=== PATIENT | female | born 1980 | race Caucasian/White ===

== ENCOUNTER 2017-01-28 11:04 | Inpatient (IN) ==
--- NOTE | 2017-01-28 11:17 | Emergency Department Note ---
Disposition Clinical Impression: Pulmonary embolism Disposition: Admitted As Inpatient Condition: Good Time of Disposition: 13:12 SOB HPI - General Chief Complaint: ED Shortness of Breath/Dyspnea Stated Complaint: Chest Pain Source: patient, family Mode of arrival: ambulatory Limitations: no limitations Nursing Notes Reviewed: Yes Vital Signs Reviewed: Yes - History of Present Illness 37-year-old female presenting to the emergency department for increasing difficulty breathing and pleuritic chest pain. She states that at the end of December she was diagnosed with a right-sided PE. They believe it was due to the depo shot that she received. She is currently being anticoagulated on xarelto. Her physician requested a direct bed to the ED for a secondary work up for PE. She states she feels chest pain when breathing. It is not constant. It does not radiate anywhere. Pt Subjective Complaint: shortness of breath, pain with inspiration Severity: moderate - Related Data Home Medications Medication Instructions Recorded Confirmed Albuterol Sulfate [Ventolin Hfa] 2 puff IH Q4-6H PRN 11/04/16 11/04/16 Citalopram Hydrobromide 40 mg PO DAILY 11/04/16 11/04/16 [Citalopram HBr] Dicyclomine [Bentyl] 10 mg PO QID 11/04/16 11/04/16 Fluticasone Propionate Nasal 2 spr NS DAILY 11/04/16 11/04/16 [Flonase] Fluticasone Propionate [Flovent 2 puff IH DAILY 11/04/16 11/04/16 Hfa] Loratadine [Claritin] 10 mg PO DAILY 11/04/16 11/04/16 Medroxyprogesterone Acetate 150 mg IM Q3M 11/04/16 11/04/16 [DEPO-Provera] Montelukast [Singulair] 10 mg PO HS 11/04/16 11/04/16 Pantoprazole Sodium 20 mg PO DAILY 11/04/16 11/04/16 Allergies Allergy/AdvReac Type Severity Reaction Status Date / Time Sulfa (Sulfonamide Allergy Rash Verified 11/04/16 11:08 Antibiotics) fexofenadine [From Tanya-D] AdvReac See Verified 11/04/16 11:08 Comments pseudoephedrine AdvReac See Verified 11/04/16 11:08 [From Tanya-D] Comments Constitutional: Denies: fever, chills, weakness Eyes: Reports: as per HPI ENT ED: Reports: as per HPI Cardiovascular: Reports: chest pain, dyspnea on exertion. Denies: palpitations Respiratory: Reports: dyspnea. Denies: cough, wheezes, hemoptysis Gastrointestinal: Reports: nausea. Denies: abdominal pain, vomiting Genitourinary: Reports: as per HPI Neurological: Denies: headache, weakness, numbness, paresthesias Endocrine: Reports: as per HPI Hematological/Lymphatic: Reports: as per HPI Past Medical History - Past Medical History Medical history: Reports: GERD, pulmonary embolus, other Surgical history: Reports: appendectomy, Psychiatric history: Reports: no psych history - Social History Smoking Status: Never smoker Smokeless Tobacco Status: No Alcohol use: Reports: none Drug use: Reports: none Physical Exam - General Limitations: no limitations General appearance: alert, anxious, obese - Head Head exam: atraumatic, normocephalic - Eye Eye exam: Present: normal appearance - Neck Neck exam: Present: normal inspection - Chest Chest inspection: Present: normal inspection, symmetric chest wall rise. Absent : tenderness - Respiratory Respiratory exam: Present: normal lung sounds bilaterally. Absent: respiratory distress, wheezes - Cardiovascular Cardiovascular exam: Present: regular rate, normal rhythm - Abdominal Exam Abdominal exam: Present: soft, Non-Tender. Absent: distention, guarding, rebound - Extremities Exam Extremities exam: Present: normal inspection, full ROM - Neurological Exam Neurological exam: Present: alert, oriented X3 - Psychiatric Psychiatric exam: Present: normal affect - Skin Skin exam: Present: warm, dry Course Course Narrative: 37-year-old female presented to the emergency department for workup of a blood clot from her physician. Due to strong history of blood clot in the past and possible family history factors of factor V Leiden we will obtain basic blood work. As long as the kidney function is within normal limits a CT of the chest be ordered. - Reevaluation(s) Reevaluation #1: Patient states he has returned. I spoke with the radiologist on the phone who stated that he has multiple small clot burden throughout the right lung. The radiologist is unable to compare to the previous study. Due to failure of outpatient treatment and increase in symptoms we will contact the hospitalist Dr. Singh . She quickly responded and agreed to accept the patient. In the emergency department we have completed PT-INR will start a heparin drip once the results of the blood work comes back Vital Signs Temperature 98.1 F 01/28/17 11:18 Pulse Rate 79 01/28/17 11:18 Respiratory Rate 24 01/28/17 11:18 Blood Pressure 132/91 01/28/17 11:18 O2 Sat by Pulse Oximetry 100 01/28/17 11:18 Temperature 98.1 F 01/28/17 11:18 Pulse Rate 78 01/28/17 12:18 Respiratory Rate 20 01/28/17 12:18 Blood Pressure 129/80 01/28/17 12:18 O2 Sat by Pulse Oximetry 98 01/28/17 12:18 Oxygen Delivery Oxygen Delivery Room Air Shortness of Breath/Dyspnea - Medical Records Medical records reviewed: Yes I reviewed the patient's medical records. - Lab Data Lab results reviewed: Yes I reviewed the patient's lab results. Result diagrams: 01/28/17 11:33 01/28/17 11:33 Lab Results 01/28/17 01/28/17 01/28/17 Range/Units 11:33 11:33 11:33 WBC 8.5 (4.3-11.1) K/mcL RBC 5.19 H (3.82-4.97) M/mcL Hgb 11.1 L (11.5-15.4) g/dL Hct 36.9 (35.3-44.9) % MCV 71.1 L (83.0-100.0) fL MCH 21.4 L (28.0-33.3) pg MCHC 30.1 L (31.6-35.5) g/dL RDW 17.1 H (11.5-14.5) % Plt Count 282 (140-400) K/mcL MPV 8.7 L (9.4-12.4) fL Immature Gran % 0.9 (0-4) % Seg Neutrophils % 67.6 % Lymphocytes % 23.1 % Monocytes % 4.7 % Eosinophils % 2.9 % Basophils % 0.8 % Neutrophils # 5.7 (1.6-8.9) K/mcL Lymphocytes # 2.0 (0.6-4.6) K/mcL Monocytes # 0.4 (0.0-1.3) K/mcL Eosinophils # 0.3 (0.0-0.6) K/mcL Basophils # 0.1 (0.0-0.2) K/mcL Sodium 138 (136-145) mEq/L Potassium 4.2 (3.5-4.5) mEq/L Chloride 108 (98-109) mEq/L Carbon Dioxide 23 (19-29) mEq/L BUN 6 L (7-20) mg/dL Creatinine 0.72 (0.57-1.11) mg/dL Est GFR ( Amer) > 60 (> 60) Est GFR (Non-Af Amer) > 60 (> 60) BUN/Creatinine Ratio 8 (6-26) Glucose 146 H (70-99) mg/dL Calculated Osmolality 286 (280-300) Calcium 9.3 (8.6-10.8) mg/dL Troponin I 0.00 (0-0.03) ng/mL B-Natriuretic Peptide (0-100) pg/mL 01/28/17 Range/Units 11:33 WBC (4.3-11.1) K/mcL RBC (3.82-4.97) M/mcL Hgb (11.5-15.4) g/dL Hct (35.3-44.9) % MCV (83.0-100.0) fL MCH (28.0-33.3) pg MCHC (31.6-35.5) g/dL RDW (11.5-14.5) % Plt Count (140-400) K/mcL MPV (9.4-12.4) fL Immature Gran % (0-4) % Seg Neutrophils % % Lymphocytes % % Monocytes % % Eosinophils % % Basophils % % Neutrophils # (1.6-8.9) K/mcL Lymphocytes # (0.6-4.6) K/mcL Monocytes # (0.0-1.3) K/mcL Eosinophils # (0.0-0.6) K/mcL Basophils # (0.0-0.2) K/mcL Sodium (136-145) mEq/L Potassium (3.5-4.5) mEq/L Chloride (98-109) mEq/L Carbon Dioxide (19-29) mEq/L BUN (7-20) mg/dL Creatinine (0.57-1.11) mg/dL Est GFR ( Amer) (> 60) Est GFR (Non-Af Amer) (> 60) BUN/Creatinine Ratio (6-26) Glucose (70-99) mg/dL Calculated Osmolality (280-300) Calcium (8.6-10.8) mg/dL Troponin I (0-0.03) ng/mL B-Natriuretic Peptide 11 (0-100) pg/mL - Radiology Data Radiology results reviewed: Yes I reviewed the patient's radiology results. - EKG Data EKG attestation: Yes I reviewed and interpreted this EKG. EKG results narrative: Rate of 74 bpm, normal sinus rhythm, normal axis. OR interval of 165 ms, QRS of 94 ms, QTC of [address] abnormalities or ischemia noted. Critical Care Time Critical Care Time: Yes Total Critical Care Time: 35 Attestation: Critical care time 35 minutes to manage patient's pulmonary embolism and Heperan drip. Attestation Statement - Attestation Attestation: Patient was seen with resident physician. I reviewed the history, physical, assessment and plan, and agree with the findings. I also personally evaluated this patient and had [id number] time with this patient. 37-year-old female presents emergency Department chief complaint chest pain and shortness of breath. Patient was actually at the pulmonologists office today who called emergency department and sent her here for additional evaluation treatment for possible pulmonary embolism. Patient has a history of the same and is being worked up for factor V Leiden deficiency. Pulmonologists said that sure symptoms were consistent with possible PE and wanted her evaluated for that and she was sent here accordingly. Patient states his symptoms really got bad today and she has skin so able exertional dyspnea. She denies fevers or chills. No nausea or vomiting. On exam vital signs are stable pulse ox is good. Heart and lungs both are normal. Abdomen is soft and nontender. Extremities are unremarkable. Neurologically this patient is intact. ED course we will do a workup for pulmonary embolism and other causes of shortness of breath. Will follow back with pulmonology and disposition according to the workup findings. Patient did not fact have multiple PEs noted on CT scan. At this point she basically is failing outpatient management. Heparin was started. Hospitalist was notified. Patient will be admitted for further evaluation treatment. Critical care time 35 minutes. I agree with the resident physician assessment and plan.
[2017-01-28 11:49] LABS: Basophils # 0.1 K/mcL (0.0-0.2); Basophils % 0.8 %; Eosinophils # 0.3 K/mcL (0.0-0.6); Eosinophils % 2.9 %; Hematocrit 36.9 % (35.3-44.9); Hemoglobin 11.1 g/dL (11.5-15.4); Immature Granulocytes % 0.9 % (0-4); Lymphocytes % 23.1 %; Mean Corpuscular HGB Conc 30.1 g/dL (31.6-35.5); Mean Corpuscular Hemoglobin 21.4 pg (28.0-33.3); Mean Corpuscular Volume 71.1 fL (83.0-100.0); Mean Platelet Volume 8.7 fL (9.4-12.4); Monocytes # 0.4 K/mcL (0.0-1.3); Monocytes % 4.7 %; Neutrophils # 5.7 K/mcL (1.6-8.9); Platelet Count 282 K/mcL (140-400); Red Blood Count 5.19 M/mcL (3.82-4.97); Red Cell Distribution Width 17.1 % (11.5-14.5); Segmented Neutrophils % 67.6 %
[2017-01-28 11:51] LABS: BUN/Creatinine Ratio 8 (6-26); Blood Urea Nitrogen 6 mg/dL (7-20); Calcium 9.3 mg/dL (8.6-10.8); Carbon Dioxide 23 mEq/L (19-29); Chloride 108 mEq/L (98-109); Glucose 146 mg/dL (70-99); Osmolality,Calculated 286 (280-300); Potassium 4.2 mEq/L (3.5-4.5); Sodium 138 mEq/L (136-145); eGFR For African Americans > 60 (> 60); eGFR For Non-African Americans > 60 (> 60)
[2017-01-28] MEDS ORDERED: Ondansetron 4 MG/2 ML VIAL IVP ONE (12:05)
[2017-01-28] MEDS ORDERED: *HR* Heparin 5,000 UNIT/ML VIAL IVP PRN (13:01)
[2017-01-28] MEDS ORDERED: *HR* Heparin 5,000 UNIT/ML VIAL IVP ONE (13:01)
[2017-01-28 13:24] LABS: INR 1.5
[2017-01-28 13:27] LABS: Activated Partial Thrombo Time 37.6 Seconds (26.0-36.0)
[2017-01-28] MEDS ORDERED: *HR* HYDROcodone/Acet 5/325 mg TABLET PO PRN (13:54)
[2017-01-28] MEDS ORDERED: Naloxone 0.4 MG/ML INJ IVP PRN (13:54)
[2017-01-28] MEDS ORDERED: Ondansetron 4 MG/2 ML VIAL IVP PRN (13:54)
--- NOTE | 2017-01-28 14:19 | Internal Med History&Physical ---
Date of Encounter: 01/28/17 Time of Encounter: 14:08 Assessment and Plan (1) Pulmonary embolism Current visit: Yes Status: Acute Patient was diagnosed with pulmonary embolism on January 03 at [facility]. She has continued to have worsening shortness of breath and chest pain. CTA today shows nonocclusive pulmonary embolism involving the distal right main pulmonary artery extending into the lobar and segmental branches of the right upper lobe, right middle lobe, and right lower lobe. This is reportedly a greater clot burden than previous. Patient reports she has been taking her Xarelto as prescribed. She has a family history of Factor V, but has not been formally diagnosed herself. She has an appointment with Hematology on 02/01 for hypercoagulable evaluation. She also had uterine bleeding earlier this year for which she was given depo-provera which is thought to have contributed to the PE. Heparin drip Continuous director of cardiac cath lab and pulse oximetry Consult to pulmonology BLE dopplers Qualifiers: Pulmonary embolism type: other Chronicity: acute Acute cor pulmonale presence: without acute cor pulmonale Qualified Code(s): I26.99 - Other pulmonary embolism without acute cor pulmonale (2) Asthma Current visit: Yes Status: Acute Patient recently diagnosed with asthma, continue Pro Air every 4 hours when necessary, Flovent twice a day, Montekulast daily. Qualifiers: Asthma severity: unspecified severity Asthma complication type: uncomplicated Qualified Code(s): J45.909 - Unspecified asthma, uncomplicated (3) Sleep apnea Current visit: Yes Status: Acute Patient reports that she was diagnosed with sleep apnea several years ago, however stopped wearing her CPAP, she reports that her recent visit with Dr. Delisa Bonds informed her this could be contributing to her problems and that he ordered a sleep study for her. Respiratory therapy consult for CPAP. Qualifiers: Sleep apnea type: unspecified type Qualified Code(s): G47.30 - Sleep apnea , unspecified (4) Anemia Current visit: Yes Status: Acute Patient with Hgb of 11.1. She reports she had significant uterine bleeding over the last year which is thought to be cause of anemia. Will get iron studies. Qualifiers: Anemia type: iron deficiency Iron deficiency anemia type: chronic blood loss Qualified Code(s): D50.0 - Iron deficiency anemia secondary to blood loss (chronic) (5) DVT prophylaxis Current visit: Yes Status: Acute Patient has been on several toe for her pulmonary embolism, as a pulmonary embolism as well as she is on a heparin drip during this hospital stay, additional pharmacologic prophylaxis is not warranted. Internal Medicine - H&P: HPI Chief complaint: shortness of breath Admitted From: Emergency Dept Plans for Post Hospital Care: Home History of present illness: Ms. Mae is a 37 year old female with asthma, IBS, sleep apnea, obesity, and recently diagnosed pulmonary embolism presented to the emergency department today from Dr. Bryan's office with increased shortness of breath and chest pain. Patient reports that she was diagnosed with a pulmonary embolism on January 03 at [facility], and she was started on several toe. She has been taking her Zaroxolyn as prescribed. She reports that she continues to have shortness of breath, has chest pain, worse with deep breath and coughing. She also has occasional lightheadedness, palpitations, and general achiness. She has occasional sweats, and nausea. She presented to Dr. Craig's office today for routine follow-up, and he felt her symptoms warranted presented to the emergency department. Patient denies headache, wheezing, abdominal pain, fever or chills. Patient reports that factor V runs in her family, however she has not been formally diagnosed, she also reports that she had trouble with uterine bleeding earlier this year for which she was given Depo-Provera which is thought to contribute to the pulmonary embolism. Evaluation in the emergency department included a chest x-ray which showed no acute cardiopulmonary process , however an updated CTA showed nonocclusive pulmonary embolism involving distal right main pulmonary artery, extending into the lobar and segmental branches of the right upper lobe, right middle lobe, and right lower lobe. This is reportedly a greater clot burden than previous. Troponin was negative at 0.00. Patient's vital signs were stable and she is satting 98-100% on room air. On exam, patient alert and oriented, in no acute distress. Heart has regular rate and rhythm, lungs are clear bilaterally to auscultation. Peripheral pulses intact, no peripheral edema. Past Med Surg Social Fam HX - Past Medical History Medical history: asthma, GERD, pulmonary embolus, other (sleep apnea, IBS) Psychiatric history: no psych history - Past Surgical History Surgical History: appendectomy, - Social History Smoking Status: Never smoker Smokeless Tobacco Status: No Alcohol use: none Drug use: none - Family History Mother Living Status: Still Living Hx Family Cardiac Disorders: Yes (HTN) Father Living Status: Still Living Grandmother History Unknown: Yes Adopted: No Hx Family Cardiac Disorders: Yes (Blood Clot in Leg) Internal Medicine - H&P: Meds Albuterol Sulfate [Ventolin Hfa] 2 puff IH Q4-6H PRN 11/04/16 [History] Citalopram Hydrobromide [Citalopram HBr] 40 mg PO DAILY 11/04/16 [History] Dicyclomine [Bentyl] 10 mg PO QID 11/04/16 [History] Fluticasone Propionate Nasal [Flonase] 2 spr NS DAILY 11/04/16 [History] Fluticasone Propionate [Flovent Hfa] 2 puff IH DAILY 11/04/16 [History] Montelukast [Singulair] 10 mg PO HS 11/04/16 [History] Pantoprazole Sodium 20 mg PO DAILY 11/04/16 [History] Rivaroxaban [Xarelto] 15 mg PO BID 01/28/17 [History] Allergies Sulfa (Sulfonamide Antibiotics) Allergy (Verified 11/04/16 11:08) Rash fexofenadine [From Tanya-D] Adverse Reaction (Verified 11/04/16 11:08) See Comments panic attack pseudoephedrine [From Tanya-D] Adverse Reaction (Verified 11/04/16 11:08) See Comments panic attack All Systems PM: A 10-system review of systems was performed and is negative for pertinent findings except as documented above in the HPI. - Constitutional Constitutional: fatigue, malaise, no chills, no fever(s), no night sweats - EENT Eyes: no change in vision, no discharge, no pain, no photophobia Ears: no ear discharge, no ear pain, no tinnitus Nose, mouth and throat: no dysphagia, no nasal discharge, no neck pain, no sore throat - Cardiovascular Cardiovascular ROS IM: chest pain, dyspnea, dyspnea on exertion, lightheadedness , palpitations, no diaphoresis, no syncope - Respiratory Respiratory: cough, dyspnea, dyspnea on exertion, pain on inspiration, pain with cough, no wheezing, no excessive phlegm production - Gastrointestinal Gastrointestinal: nausea, vomiting, no abdominal pain, no diarrhea, no hematemesis, no hematochezia, no melena - Genitourinary Genitourinary: no change in urinary stream, no dysuria, no flank pain, no hematuria - Musculoskeletal Musculoskeletal ROS IM: no numbness, no tingling - Integumentary Integumentary IM: no rash, no unusual bruising - Neurological Neurological ROS: no confusion, no convulsions, no focal weakness, no numbness, no tingling, no tremor(s) - Hematologic/Lymphatic Hematologic/Lymphatic: no easy bruising - Constitutional Vitals: Temp Pulse Resp BP Pulse Ox 98.1 F 72 22 123/77 72 01/28/17 14:04 01/28/17 14:04 01/28/17 13:31 01/28/17 14:04 01/28/17 14:04 General appearance: Present: A&O X 3, morbidly obese, pleasant, no acute distress - Head Head exam: Present: atraumatic, normocephalic - Eye Eye exam: Present: PERRL, conjuntiva pink, sclera anicteric Pupils: Present: PERRL - Neck Neck exam general surgery: Present: supple, trachea midline. Absent: lymphadenopathy - Respiratory Respiratory exam: Present: CTAB. Absent: accessory muscle use, rales, rhonchi, wheezes - Cardiovascular Cardiovascular exam: Present: RRR, +S1, +S2. Absent: diastolic murmur, gallop, rubs, systolic murmur - GI/Abdominal GI/Abdominal exam: Present: normal bowel sounds, soft, no peritoneal signs. Absent: distended, tenderness - Extremities Exam Extremities exam: Present: warm, radial pulses palpable and symetrical. Absent : calf tenderness, cyanotic, pedal edema - Neurological Exam Neurological exam: Present: CN II-XII intact, oriented X3, no focal deficits. Absent: facial droop, speech deficit - Skin Skin exam: Present: dry, intact Internal Med - H&P Results - Labs CBC & Chem 7: 01/28/17 11:33 01/28/17 11:33 Labs: All Lab Results (24 Hours) 01/28/17 01/28/17 01/28/17 Range/Units 11:33 11:33 11:33 WBC 8.5 (4.3-11.1) K/mcL RBC 5.19 H (3.82-4.97) M/mcL Hgb 11.1 L (11.5-15.4) g/dL Hct 36.9 (35.3-44.9) % MCV 71.1 L (83.0-100.0) fL MCH 21.4 L (28.0-33.3) pg MCHC 30.1 L (31.6-35.5) g/dL RDW 17.1 H (11.5-14.5) % Plt Count 282 (140-400) K/mcL MPV 8.7 L (9.4-12.4) fL Immature Gran % 0.9 (0-4) % Seg Neutrophils % 67.6 % Lymphocytes % 23.1 % Monocytes % 4.7 % Eosinophils % 2.9 % Basophils % 0.8 % Neutrophils # 5.7 (1.6-8.9) K/mcL Lymphocytes # 2.0 (0.6-4.6) K/mcL Monocytes # 0.4 (0.0-1.3) K/mcL Eosinophils # 0.3 (0.0-0.6) K/mcL Basophils # 0.1 (0.0-0.2) K/mcL PT (9.4-12.1) Seconds INR APTT (26.0-36.0) Seconds Sodium 138 (136-145) mEq/L Potassium 4.2 (3.5-4.5) mEq/L Chloride 108 (98-109) mEq/L Carbon Dioxide 23 (19-29) mEq/L BUN 6 L (7-20) mg/dL Creatinine 0.72 (0.57-1.11) mg/dL Est GFR ( Amer) > 60 (> 60) Est GFR (Non-Af Amer) > 60 (> 60) BUN/Creatinine Ratio 8 (6-26) Glucose 146 H (70-99) mg/dL Calculated Osmolality 286 (280-300) Calcium 9.3 (8.6-10.8) mg/dL Troponin I 0.00 (0-0.03) ng/mL B-Natriuretic Peptide (0-100) pg/mL 01/28/17 01/28/17 Range/Units 11:33 11:33 WBC (4.3-11.1) K/mcL RBC (3.82-4.97) M/mcL Hgb (11.5-15.4) g/dL Hct (35.3-44.9) % MCV (83.0-100.0) fL MCH (28.0-33.3) pg MCHC (31.6-35.5) g/dL RDW (11.5-14.5) % Plt Count (140-400) K/mcL MPV (9.4-12.4) fL Immature Gran % (0-4) % Seg Neutrophils % % Lymphocytes % % Monocytes % % Eosinophils % % Basophils % % Neutrophils # (1.6-8.9) K/mcL Lymphocytes # (0.6-4.6) K/mcL Monocytes # (0.0-1.3) K/mcL Eosinophils # (0.0-0.6) K/mcL Basophils # (0.0-0.2) K/mcL PT 16.0 H (9.4-12.1) Seconds INR 1.5 APTT 37.6 H (26.0-36.0) Seconds Sodium (136-145) mEq/L Potassium (3.5-4.5) mEq/L Chloride (98-109) mEq/L Carbon Dioxide (19-29) mEq/L BUN (7-20) mg/dL Creatinine (0.57-1.11) mg/dL Est GFR ( Amer) (> 60) Est GFR (Non-Af Amer) (> 60) BUN/Creatinine Ratio (6-26) Glucose (70-99) mg/dL Calculated Osmolality (280-300) Calcium (8.6-10.8) mg/dL Troponin I (0-0.03) ng/mL B-Natriuretic Peptide 11 (0-100) pg/mL - Diagnostic Studies Chest x-ray Additional comments: Chest X-Ray 01/28/17 11:12 IMPRESSION: No acute cardiopulmonary process identified. D/ / Bean Boyle MD / Bean Boyle MD Interpreting Provider: Bean Boyle MD CT scan - chest Additional comments: Chest CTA 01/28/17 12:00 IMPRESSION: There is nonocclusive pulmonary embolus involving the distal right main pulmonary artery extending into lobar and segmental branches of the right upper lobe, right middle lobe, and right lower lobe. Findings were discussed with Elizabet Hinds at 12:56 pm on 01/28/2017. D/ / Mally Pelaez MD / Mally Pelaez MD Interpreting Provider: Mally Pelaez MD
[2017-01-28 14:55] LABS: % Iron Saturation 6 % (15-50); Iron 20 mcg/dL (50-170); Transferrin 234 mg/dL (180-382)
[2017-01-28] MEDS: Heparin 25,000 UNIT/500 ML D5W 25,000 UNIT/500 ML MLS IVC SCH (15:03)
[2017-01-28] MEDS: *HR* Heparin 5,000 UNIT/ML VIAL IVP PRN (22:56)
[2017-01-29] MEDS ORDERED: *HR* LORazepam 2 MG/ML VIAL IVP PRN (00:38)
[2017-01-29 06:16] LABS: Basophils % 0.5 %; Eosinophils # 0.3 K/mcL (0.0-0.6); Eosinophils % 3.2 %; Hematocrit 32.7 % (35.3-44.9); Hemoglobin 9.6 g/dL (11.5-15.4); Immature Granulocytes % 1.1 % (0-4); Lymphocytes # 2.6 K/mcL (0.6-4.6); Mean Corpuscular HGB Conc 29.4 g/dL (31.6-35.5); Mean Corpuscular Hemoglobin 21.2 pg (28.0-33.3); Mean Corpuscular Volume 72.3 fL (83.0-100.0); Mean Platelet Volume 9.5 fL (9.4-12.4); Monocytes # 0.4 K/mcL (0.0-1.3); Monocytes % 4.4 %; Neutrophils # 4.7 K/mcL (1.6-8.9); Platelet Count 255 K/mcL (140-400); Red Blood Count 4.52 M/mcL (3.82-4.97); Red Cell Distribution Width 17.1 % (11.5-14.5); Segmented Neutrophils % 58.8 %
[2017-01-29 06:17] LABS: INR 1.3; Prothrombin Time 14.5 Seconds (9.4-12.1)
[2017-01-29 06:20] LABS: Activated Partial Thrombo Time 58.3 Seconds (26.0-36.0)
[2017-01-29 06:33] LABS: BUN/Creatinine Ratio 8 (6-26); Blood Urea Nitrogen 6 mg/dL (7-20); Calcium 8.7 mg/dL (8.6-10.8); Carbon Dioxide 26 mEq/L (19-29); Chloride 106 mEq/L (98-109); Glucose 194 mg/dL (70-99); Osmolality,Calculated 289 (280-300); Potassium 3.7 mEq/L (3.5-4.5); Sodium 138 mEq/L (136-145); eGFR For African Americans > 60 (> 60); eGFR For Non-African Americans > 60 (> 60)
[2017-01-29] MEDS: Heparin 25,000 UNIT/500 ML D5W 25,000 UNIT/500 ML MLS IVC SCH ×2 (06:52→21:52)
[2017-01-29] MEDS ORDERED: traMADol 50 MG TABLET PO PRN (07:40)
[2017-01-29] MEDS ORDERED: *HR* HYDROcodone/Acet 5/325 mg TABLET PO PRN (07:40)
[2017-01-29] MEDS: Beclomethasone 80mcg MDI IH SCH ×2 (07:54→20:01)
[2017-01-29] MEDS: Fluticasone Propionate Nasal 50 MCG/SPRAY BOTTLE NS SCH (08:18)
--- NOTE | 2017-01-29 10:37 | Pulmonology Consult Note ---
Date of Encounter: 01/29/17 Time of Encounter: 08:40 Assessment and Plan (1) Pulmonary embolism Current Visit: Yes Status: Acute Patient has pulmonary embolism well-defined by CT imaging and history. Seemingly, the only risk factor for thrombophilia is perhaps inherited mutation. The patient was noted to have pulmonary embolism over a month ago treated with Xigris seemingly has been compliant with Xigris but per review and description, has had progression of thromboembolic disease. Patient is hemodynamically stable, has no obvious signs/findings clinically to suggest right heart dysfunction and notably has a normal BNP and troponin value. It is possible that given her obesity and BMI, the typical Xigris dose was insufficient and really the only way to know this would be to obtain trough serum Xa levels following administration of the medication. I agree with the current provision of a heparin infusion. I think this patient may be best served by using Coumadin although Xigris and other similar agents could be used but serum Xa levels would need to be monitored. It is my understanding hematology has been consulted for evaluation and long- term management of this patient. Otherwise, from a pulmonary perspective, I have no additional forthcoming recommendations at this time. Patient does have a background history of asthma but this is currently quiescent, continue medical therapy as provided. It is quite possible this patient has sleep apnea in light of her body habitus and clinical features. It would be in her best interest to undergo a sleep evaluation which I discussed with her and her spouse (her spouse may also have sleep apnea to for that matter). Call if any questions. Darondavid Natacha [phone] Qualifiers: Pulmonary embolism type: other Chronicity: acute Acute cor pulmonale presence: without acute cor pulmonale Qualified Code(s): I26.99 - Other pulmonary embolism without acute cor pulmonale Code(s): I26.99 - Other pulmonary embolism without acute cor pulmonale SNOMED Code(s): 25038094, 30418066 History of Present Illness Consult date: 01/29/17 Chief complaint: Dyspnea History of present illness: This morbidly obese young female admitted to the hospital with complaints of progressive dyspnea noted over the past 7-10 days. Actually, the patient relates a history of dyspnea dating back to December of this year. She presented to [facility] at that time with dyspnea, reportedly underwent chest imaging which revealed pulmonary embolism. No obvious etiology was forthcoming from an evaluation for venous thromboembolic disease other than possible late N5 dictation. The patient was placed on Xigris and noted some improvement of breathlessness over the ensuing 2 weeks to 3 weeks but never completely recovered and returned to her baseline functional status in reference to activity tolerance. Reportedly, the patient has a family history of venous thromboembolism. She is a nonsmoker. She has no well-defined malignancy history. No current use of estrogen containing compounds Past Med Surg Social Fam HX - Past Medical History Medical history: asthma, GERD, pulmonary embolus, other (sleep apnea, IBS) Psychiatric history: no psych history - Past Surgical History Surgical History: appendectomy, - Social History Smoking Status: Never smoker Smokeless Tobacco Status: No Alcohol use: none Drug use: none - Family History Grandmother History Unknown: Yes Adopted: No Hx Family Cardiac Disorders: Yes (Blood Clot in Leg) Mother Living Status: Still Living Hx Family Cardiac Disorders: Yes (HTN) Father Living Status: Still Living Medications and Allergies Albuterol Sulfate [Ventolin Hfa] 2 puff IH Q4-6H PRN 11/04/16 [History] Citalopram Hydrobromide [Citalopram HBr] 40 mg PO DAILY 11/04/16 [History] Dicyclomine [Bentyl] 10 mg PO QID 11/04/16 [History] Fluticasone Propionate Nasal [Flonase] 2 spr NS DAILY 11/04/16 [History] Fluticasone Propionate [Flovent Hfa] 2 puff IH DAILY 11/04/16 [History] Montelukast [Singulair] 10 mg PO HS 11/04/16 [History] Pantoprazole Sodium 20 mg PO DAILY 11/04/16 [History] Rivaroxaban [Xarelto] 15 mg PO BID 01/28/17 [History] Allergies Sulfa (Sulfonamide Antibiotics) Allergy (Verified 11/04/16 11:08) Rash fexofenadine [From Tanya-D] Adverse Reaction (Verified 11/04/16 11:08) See Comments panic attack pseudoephedrine [From Tanya-D] Adverse Reaction (Verified 11/04/16 11:08) See Comments panic attack All Systems: A 10-system review of systems was performed and is negative for pertinent findings except as documented above in the HPI. - Constitutional Constitutional: fatigue, weight gain - Cardiovascular Cardiovascular: as per HPI - Respiratory Respiratory: as per HPI Physical Examination Vital Signs: Vital Signs, Last 4 Hours Temp Pulse Resp BP Pulse Ox 01/29/17 07:55 19 95 01/29/17 07:20 98.5 F 80 19 136/85 94 General appearance: no acute distress, other (Obese female appears her stated age awake and alert no distress) Eyes: nonicteric ENT: oropharynx moist Mallampati (class): 3 Auscultation: bilateral: clear Gastrointestinal: normoactive bowel sounds, non-distended Extremities: no cyanosis Musculoskeletal: no deformities normal mental status, non-focal exam Results - Laboratory Findings CBC and BMP: 01/29/17 04:52 01/29/17 04:52 PT/INR, D-dimer PT 14.5 Seconds (9.4-12.1) H 01/29/17 04:52 Abnormal lab findings: Abnormal lab results Hgb 9.6 g/dL (11.5-15.4) L D 01/29/17 04:52 Hct 32.7 % (35.3-44.9) L 01/29/17 04:52 MCV 72.3 fL (83.0-100.0) L 01/29/17 04:52 MCH 21.2 pg (28.0-33.3) L 01/29/17 04:52 MCHC 29.4 g/dL (31.6-35.5) L 01/29/17 04:52 RDW 17.1 % (11.5-14.5) H 01/29/17 04:52 PT 14.5 Seconds (9.4-12.1) H 01/29/17 04:52 APTT 58.3 Seconds (26.0-36.0) H 01/29/17 04:52 BUN 6 mg/dL (7-20) L 01/29/17 04:52 Glucose 194 mg/dL (70-99) H 01/29/17 04:52 Iron 20 mcg/dL (50-170) L 01/28/17 11:33 % Saturation 6 % (15-50) L 01/28/17 11:33 - Diagnostic Findings CT scan - chest: other (Chest CT reviewed notable for evidence of thromboembolism within the right lower lobe right main and right middle lobe vascular arterial distribution as well as left lower lobe vascular distribution. The right sided heart structures appeared nondilated although the IVC was dilated, the main pulmonary artery was not dilated. No parenchymal or mediastinal abnormalities were noted.) - Clinical Findings Intake & Output: Intake & Output 01/28/17 01/29/17 01/29/17 23:59 07:59 15:59 Intake Total 708 / 708 272 / 272 120 / 120 Balance 708 / 708 272 / 272 120 / 120 Weight 109.5 kg Consult Discharge Plan - Plan Referrals: NO,PCP [Primary Care Provider] -
[2017-01-29 13:35] LABS: Hematocrit 33.6 % (35.3-44.9); Hemoglobin 10.1 g/dL (11.5-15.4)
[2017-01-29] MEDS: Acetaminophen 325 MG TABLET PO PRN (13:35)
[2017-01-29] MEDS: *HR* Heparin 5,000 UNIT/ML VIAL IVP PRN ×2 (13:49→21:51)
--- NOTE | 2017-01-29 14:01 | Internal Med Progress Note ---
Date of Encounter: 01/29/17 Time of Encounter: 13:45 - Assessment and plan (1) Pulmonary embolism Current Visit: Yes Status: Acute Assessment and plan: Patient has worsening of her pulmonary embolism despite being on xarelto. Patient is currently on a heparin drip. Case discussed with pulmonology. Continue heparin drip. Patient will be started on Coumadin tonight. Will consult hematology tomorrow. Patient is height is due to being on heparin drip that needs constant monitoring. Qualifiers: Pulmonary embolism type: other Chronicity: acute Acute cor pulmonale presence: without acute cor pulmonale Qualified Code(s): I26.99 - Other pulmonary embolism without acute cor pulmonale (2) Anemia Current Visit: Yes Status: Acute Assessment and plan: Mild drop in hemoglobin and hematocrit. Monitor for any bleeding episodes and continue to monitor hemoglobin and hematocrit. Possibly related to anticoagulation. Qualifiers: Anemia type: unspecified type Qualified Code(s): D64.9 - Anemia, unspecified (3) Asthma Current Visit: Yes Status: Chronic Assessment and plan: Breathing treatments as needed Qualifiers: Asthma severity: mild intermittent Asthma complication type: uncomplicated Qualified Code(s): J45.20 - Mild intermittent asthma, uncomplicated (4) Sleep apnea Current Visit: Yes Status: Chronic Assessment and plan: CPAP at home settings Qualifiers: Sleep apnea type: obstructive Qualified Code(s): G47.33 - Obstructive sleep apnea (adult) (pediatric) - Subjective Interval history: Patient states that she has a dry cough without any sputum production. She reports generalized body pains. She denies any fever but reports some chills. She denies any recent sick contacts. She states that her first pulmonary embolism was on January 03. She states that she had received 2 Depo injections prior to that pulmonary embolism as she was having vaginal bleeding. She denies any vomiting but reports some nausea. - Constitutional Vitals: Temp Pulse Resp BP Pulse Ox 98.7 F 87 17 118/78 98 01/29/17 11:00 01/29/17 11:00 01/29/17 11:00 01/29/17 11:00 01/29/17 11:00 General appearance: Present: A&O X 3, morbidly obese, pleasant, no acute distress Exam: Gen.: Lying in bed. No acute distress. Chest: Clear to auscultation bilaterally. No adventitious sounds present. CVS: First and second heart sounds present. No murmurs, rubs or gallops. Abdomen: Soft, nontender, obese. Bowel sounds present. No hepatosplenomegaly. Internal Medicine: Result - Labs CBC & Chem 7: 01/29/17 13:28 01/29/17 04:52 Labs: Short CBC 01/29/17 01/29/17 Range/Units 04:52 13:28 WBC 8.0 (4.3-11.1) K/mcL Hgb 9.6 L D 10.1 L (11.5-15.4) g/dL Hct 32.7 L 33.6 L (35.3-44.9) % Plt Count 255 (140-400) K/mcL Neutrophils # 4.7 (1.6-8.9) K/mcL [facility] 01/29/17 04:52 Sodium 138 Potassium 3.7 Chloride 106 Carbon Dioxide 26 BUN 6 L Creatinine 0.76 Glucose 194 H Calcium 8.7 - ABG Interpretation ABG results: PT/INR, D-dimer PT 14.5 Seconds (9.4-12.1) H 01/29/17 04:52 Consult Discharge Plan - Plan Referrals: NO,PCP [Primary Care Provider] -
[2017-01-29] MEDS ORDERED: Warfarin perPT PO PRN (18:00)
[2017-01-29] MEDS ORDERED: *HR* Warfarin 3 MG TABLET PO SCH (18:00)
[2017-01-30 04:45] LABS: Basophils # 0.1 K/mcL (0.0-0.2); Basophils % 0.5 %; Eosinophils # 0.3 K/mcL (0.0-0.6); Eosinophils % 2.8 %; Hematocrit 32.9 % (35.3-44.9); Hemoglobin 10.1 g/dL (11.5-15.4); Immature Granulocytes % 1.1 % (0-4); Lymphocytes # 3.1 K/mcL (0.6-4.6); Lymphocytes % 30.4 %; Mean Corpuscular HGB Conc 30.7 g/dL (31.6-35.5); Mean Corpuscular Hemoglobin 22.1 pg (28.0-33.3); Mean Corpuscular Volume 72.1 fL (83.0-100.0); Mean Platelet Volume 9.7 fL (9.4-12.4); Monocytes # 0.6 K/mcL (0.0-1.3); Monocytes % 5.6 %; Neutrophils # 6.1 K/mcL (1.6-8.9); Platelet Count 259 K/mcL (140-400); Red Blood Count 4.56 M/mcL (3.82-4.97); Red Cell Distribution Width 17.2 % (11.5-14.5); Segmented Neutrophils % 59.6 %
[2017-01-30 04:58] LABS: INR 1.2; Prothrombin Time 13.1 Seconds (9.4-12.1)
[2017-01-30 05:10] LABS: Activated Partial Thrombo Time 85.4 Seconds (26.0-36.0)
[2017-01-30 05:17] LABS: Alanine Aminotransferase 20 Units/L (0-55); Albumin 3.1 g/dL (3.5-5.0); Albumin/Globulin Ratio 0.9 (1.1-2.2); Alkaline Phosphatase 141 Units/L (38-126); Aspartate Amino Transferase 11 Units/L (5-34); BUN/Creatinine Ratio 10 (6-26); Bilirubin,Total 0.4 mg/dL (0.2-1.2); Blood Urea Nitrogen 7 mg/dL (7-20); Carbon Dioxide 28 mEq/L (19-29); Chloride 105 mEq/L (98-109); Globulin 3.5 g/dL (2.4-3.5); Glucose 142 mg/dL (70-99); Osmolality,Calculated 284 (280-300); Potassium 3.9 mEq/L (3.5-4.5); Sodium 137 mEq/L (136-145); Total Protein 6.6 g/dL (6.0-8.3); eGFR For African Americans > 60 (> 60); eGFR For Non-African Americans > 60 (> 60)
[2017-01-30] MEDS: Fluticasone Propionate Nasal 50 MCG/SPRAY BOTTLE NS SCH (09:29)
[2017-01-30] MEDS: Heparin 25,000 UNIT/500 ML D5W 25,000 UNIT/500 ML MLS IVC SCH ×2 (10:09→23:06)
--- NOTE | 2017-01-30 10:17 | Electrocardiograph Report ---
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
[2017-01-30] MEDS: Beclomethasone 80mcg MDI IH SCH ×2 (10:49→20:47)
--- NOTE | 2017-01-30 12:15 | Internal Med Progress Note ---
Date of Encounter: 01/30/17 Time of Encounter: 11:15 - Assessment and plan (1) Pulmonary embolism Current Visit: Yes Status: Acute Assessment and plan: Continue heparin drip. Patient has been started on Coumadin last night. Hematology consult. We will follow recommendations. No indication for oxygen supplementation. Patient is high risk due to being on heparin drip that needs constant monitoring. Qualifiers: Pulmonary embolism type: other Chronicity: acute Acute cor pulmonale presence: without acute cor pulmonale Qualified Code(s): I26.99 - Other pulmonary embolism without acute cor pulmonale (2) Anemia Current Visit: Yes Status: Acute Assessment and plan: Hemoglobin has remained stable. Qualifiers: Anemia type: unspecified type Qualified Code(s): D64.9 - Anemia, unspecified (3) Asthma Current Visit: Yes Status: Chronic Assessment and plan: Breathing treatments as needed Qualifiers: Asthma severity: mild intermittent Asthma complication type: uncomplicated Qualified Code(s): J45.20 - Mild intermittent asthma, uncomplicated (4) Sleep apnea Current Visit: Yes Status: Chronic Assessment and plan: CPAP at home settings. Stable. Qualifiers: Sleep apnea type: obstructive Qualified Code(s): G47.33 - Obstructive sleep apnea (adult) (pediatric) (5) Morbid obesity with BMI of 40.0-44.9, adult Current Visit: Yes Status: Chronic Assessment and plan: Patient counseled at length regarding weight loss and regarding calorie restriction. - Subjective Interval history: Patient states she feels much better today. She denies feeling lightheaded or having any dizziness. Reports that she gets short of breath when she walks to the restroom. Denies any chest pain or wheezing. Denies any nausea or vomiting. - Constitutional Vitals: Temp Pulse Resp BP Pulse Ox 98.2 F 80 20 121/77 98 01/30/17 11:15 01/30/17 11:15 01/30/17 11:15 01/30/17 11:15 01/30/17 11:15 General appearance: Present: A&O X 3, morbidly obese, pleasant, no acute distress Exam: Gen.: Lying in bed. No acute distress. Chest: Clear to auscultation bilaterally. No adventitious sounds present. CVS: First and second heart sounds present. No murmurs, rubs or gallops. Abdomen: Soft, nontender, obese. Bowel sounds present. No hepatosplenomegaly. Skin: No decubitus ulcers appreciated. Internal Medicine: Result - Labs CBC & Chem 7: 01/30/17 03:56 01/30/17 03:56 Labs: Short CBC 01/29/17 01/30/17 Range/Units 13:28 03:56 WBC 10.2 (4.3-11.1) K/mcL Hgb 10.1 L 10.1 L (11.5-15.4) g/dL Hct 33.6 L 32.9 L (35.3-44.9) % Plt Count 259 (140-400) K/mcL Neutrophils # 6.1 (1.6-8.9) K/mcL BMP 01/30/17 03:56 Sodium 137 Potassium 3.9 Chloride 105 Carbon Dioxide 28 BUN 7 Creatinine 0.73 Glucose 142 H Calcium 9.0 Liver Function 01/30/17 Range/Units 03:56 Total Bilirubin 0.4 (0.2-1.2) mg/dL AST 11 (5-34) Units/L ALT 20 (0-55) Units/L Alkaline Phosphatase 141 H (38-126) Units/L Albumin 3.1 L (3.5-5.0) g/dL - ABG Interpretation ABG results: PT/INR, D-dimer PT 13.1 Seconds (9.4-12.1) H 01/30/17 03:56 Consult Discharge Plan - Plan Referrals: Dev Cole DO [Resident] - 02/20/17 2:00 pm (Please follow up as schedule...)
--- NOTE | 2017-01-30 17:40 | Oncology Inp Consult Note ---
Date of Encounter: 01/30/17 Time of Encounter: 16:51 Assessment and Plan (1) Pulmonary embolism Status: Acute Assessment and plan: - Start lovenox 30-60 minutes after heparin drip has been discontinued - Continue lovenox 100 mg SQ BID for 3-4 weeks - Consider transitioning to either apixaban or coumadin as outpatient ( after 3- 4 weeks of lovenox). - There is not indication for hypercoagulable work up at this time. - Follow up with deck engineer as outpatient Qualifiers: Pulmonary embolism type: other Chronicity: acute Acute cor pulmonale presence: without acute cor pulmonale Qualified Code(s): I26.99 - Other pulmonary embolism without acute cor pulmonale (2) Morbid obesity with BMI of 40.0-44.9, adult Status: Chronic - Data of Consult Requesting Physician: Janusz Wagoner MD Primary Care Provider: PCP NO - Consult Narrative Reason for consult: Recurrent PE History of present illness: Ms. Mae is a 37 year old female with history of obesity, asthma, obstructive sleep apnea and recent diagnosis of pulmonary emboli admitted due to recurrent PE. Ms. Mae reports that she has been suffering from dyspnea of exertion since last July, when she noticed mild shortness of breath while performing activities such as walking. She reports that in December her shortness of breath got worse; she was seen at outside medical facility and was diagnosed with a PE after a CT angio showed a clot in the distal right pulmonary artery, extending to the upper middle lower lobe and distal branches. Previously D dimer had been noticed to be elevated. she was treated with xarelto, and reports being compliant with the medical instructions, taking 1 tablets BID for 21 days and then transitioning to one tablet daily. she reports some history of vaginal bleeding for what a histerectomy was being considered, but not major bleeding events that required discontinuation of anticoagulation. She reports a family history of factor V leiden. Assessment and plan: 37 year old female with history of GEMA, Asthma and obesity, admitted due to recurrent PE while on full anticoagulation with Xarelto. RECURRENT PE: - We reviewed the previous clinical events that led to the initial diagnosis of PE, including CT angio from january 03, 2017 that revealed evidence of a acute PE in the distal right pulmonary artery, extending to the upper middle lower lobe and distal branches. A d dimer completed previously had been positive. Ms. Mae reports that she was compliant with xarelto ( initially being administered twice daily x 21 days, then daily), therefore at this time we would recommend intermediate anticoagulation, unless she develops serious bleeding complications. - We would not recommend to perform an hypercoagulable work up at this time ( in despite of her family history positive for factor Leiden), in view that would not change our treatment recommendations. -In view that she is quite symptomatic, we would prefer a short course of lovenox ( 3-4 weeks) prior to transitioning to intermediate anticoagulation with either Apixaban ( 5 mg BID). She was explained that Coumadin would be another reasonable alternative, although it would require frequent monitoring. She was advised to lose weight and explained that excessive weight could affect the efficacy of apixaban ( usually not recommended in patients with weight above 120Kg). She was advised to reschedule her outpatient hematology appointment a few weeks ( by the time prior to transitioning to either apixaban or comadin) to discuss at the clinic these possibilities. - We would not recommend long term care pharmacist use of loxvenox in view that increase the risk of osteopenia/osteoporosis. - She reports a history of menorrhagia. In view of her history of recurrent VTE , hormonal treatments are contra indicated, however an IUD could be an option to regulate her menstrual cycles and would not increase her risk of recurrent VTE. she was advised to discuss with her scouring train operator this option. Recommendations: - Start lovenox 100 mg SQ BID 30-60 min after discontinuation of heparin drip. - At this time there is not indication to check hypercoagulable work up - Check anti Xa levels 4 hours after third dose, to confirm that levels are therapeutic. - Continue lovenox for 4 weeks and consider transition to either apixaban ( 5 mg BID ) or coumadin. - Follow up with deck engineer in 3-4 weeks to discuss above recommendations. Rigoberto Diaz MD cell phone: [phone] Past Med Surg Social Fam HX - Past Medical History Medical history: asthma, GERD, pulmonary embolus, other (menorrhagia) Psychiatric history: no psych history - Past Surgical History Surgical History: appendectomy, - Social History Smoking Status: Never smoker Smokeless Tobacco Status: No Alcohol use: none Drug use: none - Family History Grandmother History Unknown: Yes Adopted: No Hx Family Cardiac Disorders: Yes (Blood Clot in Leg) Mother Living Status: Still Living Hx Family Cardiac Disorders: Yes (HTN) Father Living Status: Still Living Medications and Allergies Albuterol Sulfate [Ventolin Hfa] 2 puff IH Q4-6H PRN 11/04/16 [History] Citalopram Hydrobromide [Citalopram HBr] 40 mg PO DAILY 11/04/16 [History] Dicyclomine [Bentyl] 10 mg PO QID 11/04/16 [History] Fluticasone Propionate Nasal [Flonase] 2 spr NS DAILY 11/04/16 [History] Fluticasone Propionate [Flovent Hfa] 2 puff IH DAILY 11/04/16 [History] Montelukast [Singulair] 10 mg PO HS 11/04/16 [History] Pantoprazole Sodium 20 mg PO DAILY 11/04/16 [History] Rivaroxaban [Xarelto] 15 mg PO BID 01/28/17 [History] Allergies Sulfa (Sulfonamide Antibiotics) Allergy (Verified 11/04/16 11:08) Rash fexofenadine [From Tanya-D] Adverse Reaction (Verified 11/04/16 11:08) See Comments panic attack pseudoephedrine [From Tanya-D] Adverse Reaction (Verified 11/04/16 11:08) See Comments panic attack Constitutional: Present: fatigue, weight gain Ears: Present: as per HPI Cardiovascular: Present: dyspnea on exertion Respiratory: Present: dyspnea on exertion Gastrointestinal: Present: as per HPI Genitourinary: Present: menorrhagia Menstruation: as per HPI, period heavy Oncology - Exam - Constitutional Vitals: Temp Pulse Resp BP Pulse Ox 98.0 F 85 30 114/78 96 01/30/17 16:17 01/30/17 16:17 01/30/17 16:17 01/30/17 16:17 01/30/17 16:17 General appearance: average body habitus, obese - Head Head exam: Present: normal inspection - Respiratory Respiratory exam: Present: CTAB - Cardiovascular Cardiovascular exam: Present: RRR, tachycardia - GI/Abdominal GI/Abdominal exam: Present: normal bowel sounds - Extremities Exam Extremities exam: Present: normal inspection Additional comments: No calf tenderness of swelling. - Skin Skin exam: Present: normal color Oncology - Results - Labs Labs: Short CBC 01/30/17 Range/Units 03:56 WBC 10.2 (4.3-11.1) K/mcL Hgb 10.1 L (11.5-15.4) g/dL Hct 32.9 L (35.3-44.9) % Plt Count 259 (140-400) K/mcL Neutrophils # 6.1 (1.6-8.9) K/mcL BMP 01/30/17 03:56 Sodium 137 Potassium 3.9 Chloride 105 Carbon Dioxide 28 BUN 7 Creatinine 0.73 Glucose 142 H Calcium 9.0 Liver Function 01/30/17 Range/Units 03:56 Total Bilirubin 0.4 (0.2-1.2) mg/dL AST 11 (5-34) Units/L ALT 20 (0-55) Units/L Alkaline Phosphatase 141 H (38-126) Units/L Albumin 3.1 L (3.5-5.0) g/dL Consult Discharge Plan - Plan Referrals: Dev Cole DO [Resident] - 02/20/17 2:00 pm (Please follow up as schedule...)
[2017-01-30] MEDS ORDERED: *HR* Warfarin 5 MG TABLET PO SCH (18:00)
[2017-01-30] MEDS: Acetaminophen 325 MG TABLET PO PRN (18:03)
[2017-01-31 05:36] LABS: Basophils # 0.1 K/mcL (0.0-0.2); Basophils % 0.5 %; Eosinophils # 0.3 K/mcL (0.0-0.6); Eosinophils % 2.8 %; Hematocrit 32.4 % (35.3-44.9); Hemoglobin 9.9 g/dL (11.5-15.4); INR 1.2; Immature Granulocytes % 1.9 % (0-4); Lymphocytes # 3.4 K/mcL (0.6-4.6); Lymphocytes % 29.6 %; Mean Corpuscular HGB Conc 30.6 g/dL (31.6-35.5); Mean Corpuscular Hemoglobin 21.9 pg (28.0-33.3); Mean Corpuscular Volume 71.7 fL (83.0-100.0); Mean Platelet Volume 9.5 fL (9.4-12.4); Monocytes # 0.6 K/mcL (0.0-1.3); Monocytes % 4.9 %; Platelet Count 265 K/mcL (140-400); Prothrombin Time 13.1 Seconds (9.4-12.1); Red Blood Count 4.52 M/mcL (3.82-4.97); Red Cell Distribution Width 17.1 % (11.5-14.5); Segmented Neutrophils % 60.3 %
[2017-01-31 05:54] LABS: BUN/Creatinine Ratio 10 (6-26); Blood Urea Nitrogen 7 mg/dL (7-20); Calcium 9.1 mg/dL (8.6-10.8); Carbon Dioxide 27 mEq/L (19-29); Chloride 104 mEq/L (98-109); Glucose 126 mg/dL (70-99); Osmolality,Calculated 284 (280-300); Potassium 3.8 mEq/L (3.5-4.5); Sodium 137 mEq/L (136-145); eGFR For African Americans > 60 (> 60); eGFR For Non-African Americans > 60 (> 60)
[2017-01-31 07:34] VITALS: BP 117/79
[2017-01-31] MEDS: Fluticasone Propionate Nasal 50 MCG/SPRAY BOTTLE NS SCH (08:07)
[2017-01-31] MEDS ORDERED: *HR* Enoxaparin 120 MG/0.8 ML SYRINGE SQ SCH (08:55)
--- NOTE | 2017-01-31 09:04 | Discharge Summary ---
<Lashay Thomas - Last Filed: 01/31/17 09:44> Date of Encounter: 01/31/17 Time of Encounter: 08:00 - Discharge Diagnosis (1) Pulmonary embolism Priority: Primary Status: Acute Qualifiers: Pulmonary embolism type: other Chronicity: acute Acute cor pulmonale presence: without acute cor pulmonale Qualified Code(s): I26.99 - Other pulmonary embolism without acute cor pulmonale (2) Asthma Priority: Secondary Status: Chronic Qualifiers: Asthma severity: mild intermittent Asthma complication type: uncomplicated Qualified Code(s): J45.20 - Mild intermittent asthma, uncomplicated (3) Anemia Priority: Secondary Status: Acute Qualifiers: Anemia type: unspecified type Qualified Code(s): D64.9 - Anemia, unspecified (4) Sleep apnea Priority: Secondary Status: Chronic Qualifiers: Sleep apnea type: obstructive Qualified Code(s): G47.33 - Obstructive sleep apnea (adult) (pediatric) (5) Morbid obesity with BMI of 40.0-44.9, adult Priority: Secondary Status: Chronic - Discharge Medications Prescriptions: Enoxaparin [Lovenox *PHARMACY WT BASED*] 100 mg SQ Q12HR #14 mg Home Medications: Albuterol Sulfate [Ventolin Hfa] 2 puff IH Q4-6H PRN 11/04/16 [History] Citalopram Hydrobromide [Citalopram HBr] 40 mg PO DAILY 11/04/16 [History] Dicyclomine [Bentyl] 10 mg PO QID 11/04/16 [History] Fluticasone Propionate Nasal [Flonase] 2 spr NS DAILY 11/04/16 [History] Fluticasone Propionate [Flovent Hfa] 2 puff IH DAILY 11/04/16 [History] Montelukast [Singulair] 10 mg PO HS 11/04/16 [History] Pantoprazole Sodium 20 mg PO DAILY 11/04/16 [History] Enoxaparin [Lovenox *PHARMACY WT BASED*] 100 mg SQ Q12HR #14 mg 01/31/17 [Rx] Allergies/Adverse Reactions: Allergies Sulfa (Sulfonamide Antibiotics) Allergy (Verified 11/04/16 11:08) Rash fexofenadine [From [facility]] Adverse Reaction (Verified 11/04/16 11:08) See Comments panic attack pseudoephedrine [From [facility]] Adverse Reaction (Verified 11/04/16 11:08) See Comments panic attack Date of admission: 01/29/17 08:00 Primary care physician: PCP NO Consults: 01/30/17 08:05 Consult to Oncology Hematology [CONS] Routine Consulting Provider: Mayito Bee Reason for Consult: PE on xarelto Call Completed: Yes Discharging clinician: Lashay Thomas Anticipated date of discharge: 01/31/17 - Patient Status Disposition: Home, Self-Care Condition: Good Functional capacity at discharge: independent ambulation Overall status at discharge: patient is progressing back to baseline - Discharge Instructions Follow Up With: Dev Cole DO [Resident] - 02/20/17 2:00 pm (Please follow up as schedule...) [facility] [Provider Group] (PE despite of being on Xarelto. Will be discharged home with Lovenox and need follow-up with hematology in 3-4 weeks regarding possible transition to either apixaban ( 5 mg BID ) or coumadin. ) Additional Instructions: Please take Lovenox 100 mg subcutaneous twice a day for 4 weeks. Please get factor Xa lab done 4 hours after your 3rd dose of Lovenox ( presumptively tomorrow morning). Please follow up with [facility]/hematology within 3-4 weeks. Please follow up with your primary care provider within a week. - Diet and Activity Activity: increase activity as tolerated Diet: diabetic diet, low fat, low cholesterol Hospital course: Ms. Mae is a 37 year old female with family history of factor V Leiden and PMH of asthma and on Xarelto for recently diagnosed PE. Patient presented with worsening shortness of breath and pleuritic chest pain since the diagnosis of PE on 01/03/17. Patient was noted to be tachypneic in ED and CTA chest found nonocclusive pulmonary embolus involving the distal right main pulmonary artery extending into lobar and segmental branches of the right upper lobe, right middle lobe, and right lower lobe. BLE venous doppler is negative for DVT. Patient was admitted on 01/28/17 for further evaluation & management of PE. Patient was started on heparin drip and later Coumadin was added. Pulmonology thinks the anticoagulation home dose was insufficient given patient's obesity and no further recommendations is indicated. Hematology recommends Lovenox 100 mg SQ BID for 4 weeks. Patient will need anti Xa levels checked 4 hours after third dose to confirm that levels are therapeutic but no further indication of hypercoagulable work-up at this time. Patient will follow up with hematology in 3-4 weeks to discuss possible transition to either apixaban ( 5 mg BID ) or coumadin. Given patient's significant improvement on respiratory status and pleuritic chest pain along with stable VS (T98.1, HR 77, BP 117/79, RR 17, O2 sat 98% on room air), patient can be discharged today or wait one more day to get factor Xa checked. These two options were discussed with patient and she opted to be discharged home today. Patient will go home with prescription of Lovenox and will get factor Xa checked tomorrow in outpatient lab. Patient was instructed about above recommendations from hematology as well. Patient verbalized her understanding and agrees with the discharge plan. All questions answered. - Time Spent with Patient Total time spent providing and/or coordinating discharge services: Greater than 30 minutes - Constitutional Vitals: Temp Pulse Resp BP Pulse Ox 98.1 F 77 17 117/79 98 01/31/17 07:33 01/31/17 07:33 01/31/17 07:33 01/31/17 07:33 01/31/17 07:33 General appearance: Present: A&O X 3, morbidly obese, pleasant, no acute distress - Head Head exam: Present: atraumatic, normocephalic - Eye Eye exam: Present: EOMI, PERRL, conjuntiva pink, sclera anicteric Pupils: Present: PERRL - Neck Neck exam general surgery: Present: supple, trachea midline. Absent: lymphadenopathy - Respiratory Respiratory exam: Present: CTAB. Absent: accessory muscle use, rales, rhonchi, wheezes - Cardiovascular Cardiovascular exam: Present: RRR, +S1, +S2. Absent: diastolic murmur, gallop, rubs, systolic murmur - GI/Abdominal GI/Abdominal exam: Present: normal bowel sounds, soft, no peritoneal signs. Absent: distended, tenderness - Extremities Exam Extremities exam: Present: warm, radial pulses palpable and symetrical. Absent : calf tenderness, cyanotic, pedal edema - Neurological Exam Neurological exam: Present: CN II-XII intact, oriented X3, no focal deficits. Absent: pronater drift, facial droop, speech deficit - Skin Skin exam: Present: dry, intact, warm <Donald Jeronimo - Last Filed: 01/31/17 10:17> Date of Encounter: 01/31/17 Date of admission: 01/29/17 08:00 Primary care physician: PCP NO Consults: 01/30/17 08:05 Consult to Oncology Hematology [CONS] Routine Consulting Provider: Mayito Bee Reason for Consult: PE on xarelto Call Completed: Yes Hospital course: Ms. Mae is a 37 year old female - Time Spent with Patient Total time spent providing and/or coordinating discharge services: - Constitutional Vitals: Temp Pulse Resp BP Pulse Ox 98.1 F 77 17 117/79 98 01/31/17 07:33 01/31/17 07:33 01/31/17 07:33 01/31/17 07:33 01/31/17 07:33 - Attending Attestation Time spent on this discharge 40 minutes Follow-up with oncology within the next 1-2 weeks to start oral anticoagulation after 3-4 weeks I examined this patient and my medical decision-making was reviewed with the Resident Physician. I agree with the documented findings, disposition and treatment plan as described except to the extent set forth below.
--- NOTE | 2017-01-31 09:27 | Venous Imaging Report ---
LE Venous Duplex Patient Name:Randi Mae Order Number:[id number] Procedure Date:01/29/2017 Date:1980Age:37 yrs Gender:Female Location:[facility] Room #: 2A35 Comb Capper:ERON VergaraT Referring MD:Alexus Nichole, [employer] country printer:None Reading MD:Corby Villalobos MD Primary Indications:PE, eval for DVT Secondary Indications: Impressions: Normal bilateral lower extremity deep and superficial venous exam. Findings Venous Duplex Results: Right: Venous imaging of the lower extremity reveals full patency and normal vessel compressibility of the right distal iliac, right common femoral, right superficial femoral, right popliteal, right posterior tibial, right peroneal, right great saphenous and right lesser saphenous. Doppler signals in the evaluated veins were normal. Left: Venous imaging of the lower extremity reveals full patency and normal vessel compressibility of the left distal iliac, left common femoral, left superficial femoral, left popliteal, left posterior tibial, left peroneal, left great saphenous and left lesser saphenous. Doppler signals in the evaluated veins were normal. Prior Study: No prior study available for comparison. Lower Extremity Venous Duplex Side Vein Compress Spontaneous Flow Augment Diameter (cm) Depth (cm) Right Distal Iliac Normal Yes Phasic Yes Right Common Femoral Normal Yes Phasic Yes Right Superficial Femoral Normal Yes Phasic Yes Right Popliteal Normal Yes Phasic Yes Right Posterior Tibial Normal Yes Phasic Yes Right Peroneal Normal Yes Phasic Yes Right Great Saphenous Normal Yes Phasic Yes Right Lesser Saphenous Normal Yes Phasic Yes Left Distal Iliac Normal Yes Phasic Yes Left Common Femoral Normal Yes Phasic Yes Left Superficial Femoral Normal Yes Phasic Yes Left Popliteal Normal Yes Phasic Yes Left Posterior Tibial Normal Yes Phasic Yes Left Peroneal Normal Yes Phasic Yes Left Great Saphenous Normal Yes Phasic Yes Left Lesser Saphenous Normal Yes Phasic Yes Updated by Corby Villalobos MD on 01/31/2017 9:21:39 AM electronically signed on 01/31/2017 9:21:57 AM with status of Final
[2017-01-31] MEDS: Beclomethasone 80mcg MDI IH SCH (10:56)
== END 2017-01-31 11:24 | disposition home or self-care (01) | DRG 134 ==
LOC: EMEROO 11:04 → 2ANU 11:04 → SUATTDRO 13:11 → 2ANU 13:33 → SUATTDRO 01-29 08:00
PROVIDERS: ADMIT Internal Medicine; ATTEND Internal Medicine